=== PATIENT | female | born 1955 | race Caucasian/White ===

== ENCOUNTER 2022-12-23 00:31 | Inpatient (IN) | payer MEDICARE, BC ==
[~2022-12-23] VITALS: Ht 175.3 cm; Wt 68.5 kg
[2022-12-23] MEDS ORDERED: BUPR-53 PO (00:56)
[2022-12-23] MEDS ORDERED: METO50TA16 PO (00:56)
[2022-12-23] MEDS ORDERED: TICA90TA PO (00:56)
[2022-12-23] MEDS ORDERED: ATOR80TA PO (00:56)
[2022-12-23] MEDS ORDERED: ASPI81TA31 PO (00:56)
[2022-12-23] MEDS ORDERED: TRAZ-182 PO (00:56)
--- NOTE | 2022-12-23 01:02 | NUR ---
Called house painting instructor for 1-1 sitter. Per house painting instructor none available.
[2022-12-23 01:14] LABS: HEMATOCRIT 29.5 % (31.2-41.9); MEAN CORPUSCULAR VOLUME 96.2 fL (75.5-95.3); PLATELET COUNT (AUTO) 224 K/uL (179-408)
[2022-12-23 01:27] LABS: CARBON DIOXIDE 25 mmol/L (21-32); CHLORIDE 108 mmol/L (98-107); GLUCOSE 103 mg/dL (74-106); POTASSIUM 3.7 mmol/L (3.5-5.1); UREA NITROGEN, BLOOD 18 mg/dL (7-18)
[2022-12-23 01:35] LABS: ALANINE AMINOTRANSFERASE 22 U/L (14-59); ALKALINE PHOSPHATASE 70 U/L (50-136); ASPARTATE AMINOTRANSFERASE 19 U/L (15-37); BILIRUBIN,DIRECT 0.1 mg/dL (0.0-0.2); BILIRUBIN,TOTAL 0.3 mg/dL (0.2-1.0); ETHANOL < 3 MG/DL (0-0); TOTAL PROTEIN, SERUM 6.9 g/dL (6.4-8.2)
[2022-12-23 01:39] LABS: THYROID STIMULATING HORMONE 1.552 mIU/mL (0.358-3.740)
[2022-12-23 01:45] LABS: *BILIRUBIN,URIN NEGATIVE (NEGATIVE); *BLOOD, URINE NEGATIVE (NEGATIVE); *CLARITY,URINE CLEAR (CLEAR); *COLOR,URINE YELLOW (YELLOW); *KETONES,URINE NEGATIVE (NEGATIVE); *UROBILINOGEN,URINE 0.2 E.U./dl (NORMAL); LEUKOCYTE ESTERASE ,URINE 1+ (NEGATIVE); NITRITE, URINE NEGATIVE (NEGATIVE); UGLUCOSE NEGATIVE (NEGATIVE)
[2022-12-23 01:46] LABS: BACTERIA,URINE FEW /HPF (NONE SEEN); RBC,URINE 0-3 /HPF (0-3); SQUAMOUS EPITHELIAL CELL,UR FEW /HPF (NONE SEEN)
--- NOTE | 2022-12-23 01:48 | NUR ---
Called mental health for bed number. Recieved room # 137-B per Becky DE ANDA.
--- NOTE | 2022-12-23 01:48 | NUR ---
Patient has been medically cleared per MD Dr. Mcghee.
[2022-12-23 01:54] LABS: *AMPHETAMINE, URINE NEGATIVE (NEGATIVE); *CANNABINOID, URINE NEGATIVE (NEGATIVE); *COCCAINE, URINE NEGATIVE (NEGATIVE); *PHENCYCLIDINE SCREEN,URINE NEGATIVE (NEGATIVE)
--- NOTE | 2022-12-23 02:27 | NUR ---
Called [facility] and gave report to ADILSON Pena.
--- NOTE | 2022-12-23 02:50 | NUR ---
Transferred patient to MHU. ADILSON Pena made aware of patients arrival.
[2022-12-23] MEDS ORDERED: MAG HYDROX/AL HYDROX/SIMETH 30 ML LIQUID UDC PO PRN (03:00)
[2022-12-23] MEDS ORDERED: MAGNESIUM HYDROXIDE 30 ML LIQUID UDC PO PRN (03:00)
[2022-12-23 03:22] VITALS: BP 132/55
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
[2022-12-23] MEDS: ACETAMINOPHEN 325 MG TABLET PO PRN (04:22)
[2022-12-23] MEDS: CLONAZEPAM 0.5 MG TABLET PO PRN (04:22)
[2022-12-23 07:30] VITALS: BP 151/55
[2022-12-23 11:36] LABS: IRON, SERUM 18 ug/dL (50-175)
[2022-12-23] MEDS ORDERED: buPROPion XL 150 MG TAB.SR.24H PO SCH (13:00)
[2022-12-23] MEDS: LOPERAMIDE HCL 2 MG CAPSULE PO PRN ×2 (13:39→18:18)
[2022-12-23] MEDS: METOPROLOL TARTRATE 50 MG TABLET PO SCH ×2 (13:40→18:01)
[2022-12-23] MEDS: CEphaleXIN 250 MG CAPSULE PO SCH ×3 (13:41→21:11)
[2022-12-23] MEDS: TICAGRELOR 90 MG TABLET PO SCH ×2 (13:45→18:19)
--- NOTE | 2022-12-23 14:44 | NUR ---
SILVIA Initial Discharge Note: Pt currently resides at home alone located at [address] [place] [address] ([phone]). SILVIA contacted pt's best friend, and left a voicemail for a call back with this SW's and nursing station contact number. Pt stated she will be continuing care at [facility]. SILVIA will confirm. SILVIA will continue to work with pt, Nikki and to ensure a safe and proper discharge plan.
[2022-12-23 15:23] VITALS: BP 103/53
--- NOTE | 2022-12-23 16:33 | NUR ---
Gps/School Psychology Professor-Stayed in her room in bed most of the say, encouraged participation in her group activity. Patient tried to ambulate to the group activity, complained feeling weak no strength on her knees . Had diarrhrea x1 claimed was liquid stools large amount, Dr Giovani Delgadillo was called, informed, order received. No bowel incontinence noted,, offered to use diaper, pt. refused . Large ecchymosis /bruising to right wrist f/a area and right groin area . Complained of H/A tylenol 650 mg po offered, verbalized adequate relief .
[2022-12-23 20:03] VITALS: BP 152/59
[2022-12-23] MEDS: TEMAZEPAM 7.5 MG CAPSULE PO PRN (20:48)
[2022-12-23] MEDS: ATORVASTATIN 40 MG TABLET PO SCH (20:49)
[2022-12-24] MEDS: ACETAMINOPHEN 325 MG TABLET PO PRN ×4 (04:43→21:01)
[2022-12-24] MEDS: CEphaleXIN 250 MG CAPSULE PO SCH ×3 (06:06→21:01)
[2022-12-24 08:06] VITALS: BP 142/42
[2022-12-24] MEDS: ASPIRIN 81 MG TAB.CHEW PO SCH (09:20)
[2022-12-24] MEDS: buPROPion XL 150 MG TAB.SR.24H PO SCH (09:21)
[2022-12-24] MEDS: METOPROLOL TARTRATE 50 MG TABLET PO SCH ×2 (09:22→16:57)
[2022-12-24] MEDS: TICAGRELOR 90 MG TABLET PO SCH ×2 (09:30→16:58)
--- NOTE | 2022-12-24 13:00 | NUR ---
Gps/Flatbed Owner Operator Received a call from an Emergency #911 , stating a person named Nicci called and requesting to be transfered to a real Hospital for dehydration . Patient had been having adequate fluid intake , noted getting intrusive with her roommate situation. Discouraged from insinuating . Refused to participate in her group activity , preferred to stay in bed with hersunglasses on, wants her room dark r/t bothers her eyes.
[2022-12-24 14:20] LABS: BILIRUBIN,TOTAL 0.4 mg/dL (0.2-1.0); POTASSIUM 3.7 mmol/L (3.5-5.1); TOTAL PROTEIN, SERUM 6.5 g/dL (6.4-8.2)
[2022-12-24 15:47] VITALS: BP 121/46
--- NOTE | 2022-12-24 18:38 | NUR ---
Gps/Investment Director- Friend in to visit, brought in meds. from home , noted patient taking the same dose of medications from home, put per friend did not belt picker Brillinta r/t expensive co -payment , informed patient she's om brillinta now.
[2022-12-24 19:30] VITALS: BP 132/54
[2022-12-24] MEDS: ATORVASTATIN 40 MG TABLET PO SCH (20:26)
[2022-12-25] MEDS: CEphaleXIN 250 MG CAPSULE PO SCH ×3 (06:19→20:23)
[2022-12-25] MEDS: buPROPion XL 150 MG TAB.SR.24H PO SCH (07:50)
[2022-12-25] MEDS: TICAGRELOR 90 MG TABLET PO SCH ×2 (07:51→16:56)
[2022-12-25] MEDS: ASPIRIN 81 MG TAB.CHEW PO SCH (07:52)
[2022-12-25 07:53] VITALS: BP 145/75
[2022-12-25] MEDS: METOPROLOL TARTRATE 50 MG TABLET PO SCH ×2 (09:35→16:59)
--- NOTE | 2022-12-25 11:15 | NUR ---
GPS: Nursing noted: 5250 [facility] Request: Staff gave capy of 5250 to patient. Explained 5250 and informed patient that a certification review hearing will be held within four days and patient 's right advocate will call her to provide assistance with the hearing and to answer any of his questions. The court has been notified of this certification via [facility] portal on this day.
--- NOTE | 2022-12-25 15:26 | NUR ---
Gps/Process Safety Management Engineer- Per patient , claimed she does not belong here, she wants to be moved to another hospital . She claimed she lives with her friend , they take care of each other . She has a son that checked on her
[2022-12-25 16:29] VITALS: BP 146/59
[2022-12-25] MEDS: ACETAMINOPHEN 325 MG TABLET PO PRN (18:54)
[2022-12-25] MEDS: ATORVASTATIN 40 MG TABLET PO SCH (20:23)
[2022-12-25] MEDS: CLONAZEPAM 0.5 MG TABLET PO PRN (20:23)
[2022-12-25 20:24] VITALS: BP 131/81
[2022-12-25] MEDS: TEMAZEPAM 7.5 MG CAPSULE PO PRN (22:23)
[2022-12-26] MEDS: ACETAMINOPHEN 325 MG TABLET PO PRN ×2 (03:10→14:38)
[2022-12-26] MEDS: CLONAZEPAM 0.5 MG TABLET PO PRN ×2 (03:10→14:39)
--- NOTE | 2022-12-26 03:41 | NUR ---
Received patient at the start of the shift, requesting to talk with this blog writer. The patient had multiple complaints about the " Female Doctor that saw me today. I am going to write her up. " This patient also proceeded to make complaints about the nursing staff, other patients, the environment , just about everything and everyone. This blog writer was an active listener and made some suggestion to the patient on focusing on why she is here and to try and formulate some coping stratiges for when she is discharged, instead of making everything and everybody her problem. The patient does not recognize or talk about her SA. The patient verbalized " I am getting out of here tonight or tomorrow, no matter what". The 14 day hold was discussed, but the patient has selective listening whenever reality based or uncomfortable topics arise. This patient has shown poor insight, minimizes and or denies SI/SA , making education, encouragement and reassurance difficult and ineffective. Safety Stratiges are in place and a verbal contract for safety was made between the patient and this blog writer.
[2022-12-26] MEDS: CEphaleXIN 250 MG CAPSULE PO SCH ×3 (06:15→20:42)
[2022-12-26 07:58] VITALS: BP 123/57
[2022-12-26] MEDS: buPROPion XL 150 MG TAB.SR.24H PO SCH (08:54)
[2022-12-26] MEDS: ASPIRIN 81 MG TAB.CHEW PO SCH (08:54)
[2022-12-26] MEDS: METOPROLOL TARTRATE 50 MG TABLET PO SCH ×2 (08:55→16:41)
[2022-12-26] MEDS: TICAGRELOR 90 MG TABLET PO SCH ×2 (08:56→16:41)
--- NOTE | 2022-12-26 15:06 | NUR ---
Gps/Organ Pipe Maker Metal- Came to Nurses Station to return the portable phone, claimed she just finished talking to her son , claimed she felt like her heart is racing ,having palpitation Checked v/s HR 76 , 02 sat 98% B/P 134/60 , no pain, patient claimed feeling anxious. clonopin 0.5 mg 1 tab po given .patient was reassured,
[2022-12-26 16:13] VITALS: BP 134/60
[2022-12-26 19:52] VITALS: BP 116/63
[2022-12-26] MEDS: ATORVASTATIN 40 MG TABLET PO SCH (20:41)
[2022-12-26] MEDS: TEMAZEPAM 7.5 MG CAPSULE PO PRN (22:01)
[2022-12-27] MEDS: ACETAMINOPHEN 325 MG TABLET PO PRN ×2 (03:42→12:55)
[2022-12-27] MEDS: CEphaleXIN 250 MG CAPSULE PO SCH ×3 (05:37→22:09)
--- NOTE | 2022-12-27 06:43 | NUR ---
Patient slept 5.15 hours. Around 10 PM, this patient was sitting on the floor in the luo, requesting to call her Son. When this designer writer said it was off hours for the phone , the patient got angry and stormed off to her room. The patient easily angers and get argumentative frequently . When asked about having SI, the patient would not confirm or deny it and was quick to change the subject. Continuing to encourage the patient to verbalize her feelings and to stop minimizing the seriousness of the situation. Safety Stratiges remain in place.
[2022-12-27 07:55] VITALS: BP 132/58
[2022-12-27] MEDS: TICAGRELOR 90 MG TABLET PO SCH ×2 (08:22→16:40)
[2022-12-27] MEDS: ASPIRIN 81 MG TAB.CHEW PO SCH (08:22)
[2022-12-27] MEDS: buPROPion XL 150 MG TAB.SR.24H PO SCH (08:22)
[2022-12-27] MEDS: METOPROLOL TARTRATE 50 MG TABLET PO SCH ×2 (08:23→16:39)
[2022-12-27 15:21] VITALS: BP 130/85
--- NOTE | 2022-12-27 16:52 | NUR ---
GPS: Nursing Notes: Destructive Behavior To Self: patient is awake and responding to her name, cooperative with nursing care, compliant with her medications, needs prompting to participate in therapeutic groups, depressed mood and anxious affect, isolative and withdrawn in am, but interactive with peers, A/Ox4, unable to formulate a viable plan for self care, denies SI, continue to monitor for safety, continue with treatment plan.
[2022-12-27] MEDS: ATORVASTATIN 40 MG TABLET PO SCH (20:01)
[2022-12-27 20:03] VITALS: BP 137/48
[2022-12-27] MEDS: TEMAZEPAM 7.5 MG CAPSULE PO PRN (21:01)
--- NOTE | 2022-12-27 22:11 | NUR ---
Pt c/o insomnia, administered Restoril 7.25mg PO as ordered with good effect. Pt sleeping comfortably at this time. In no acute distress.
[2022-12-28] MEDS: CEphaleXIN 250 MG CAPSULE PO SCH (06:03)
[2022-12-28 07:59] VITALS: BP 118/54
[2022-12-28] MEDS: buPROPion XL 150 MG TAB.SR.24H PO SCH (08:57)
[2022-12-28] MEDS: ASPIRIN 81 MG TAB.CHEW PO SCH (08:57)
[2022-12-28] MEDS: METOPROLOL TARTRATE 50 MG TABLET PO SCH ×2 (08:58→16:41)
[2022-12-28] MEDS: TICAGRELOR 90 MG TABLET PO SCH ×2 (08:58→16:43)
[2022-12-28] MEDS: LOPERAMIDE HCL 2 MG CAPSULE PO PRN (09:57)
--- NOTE | 2022-12-28 10:23 | NUR ---
SILVIA Discharge Update: SILVIA spoke with pt's friend, ([phone]) who stated that pt will be discharging home under her care located at [address] [place] [address]. confirmed she will provide transportation at 11AM. Pt [facility]-up with [facility] in [place] [phone].
--- NOTE | 2022-12-28 13:00 | NUR ---
Gps Nursing Notes [facility]: Patient [facility] hearing today for 5250 upheld for GD/DTS, patient filed a Writ, request faxed to [employer].
[2022-12-28] MEDS: ACETAMINOPHEN 325 MG TABLET PO PRN (13:16)
[2022-12-28 16:00] VITALS: BP 120/45
--- NOTE | 2022-12-28 16:57 | NUR ---
GPS: Nursing Notes: Writ File: Dr. Yost informed of Writ hearing filed today. Staff left message to certified social workers in health care via answer machine regarding Writ hearing filed per Dr. Yost, continue to monitor for safety, continue with treatment plan.
[2022-12-28 20:00] VITALS: BP 114/66
[2022-12-28] MEDS: TEMAZEPAM 7.5 MG CAPSULE PO PRN (21:23)
[2022-12-28] MEDS: ATORVASTATIN 40 MG TABLET PO SCH (21:23)
[2022-12-29 07:45] VITALS: BP 105/61
[2022-12-29] MEDS: ASPIRIN 81 MG TAB.CHEW PO SCH (08:36)
[2022-12-29] MEDS: buPROPion XL 150 MG TAB.SR.24H PO SCH (08:36)
[2022-12-29] MEDS: TICAGRELOR 90 MG TABLET PO SCH ×2 (08:39→17:55)
[2022-12-29] MEDS: METOPROLOL TARTRATE 50 MG TABLET PO SCH ×2 (08:41→17:57)
[2022-12-29 08:45] VITALS: BP 115/77
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
--- NOTE | 2022-12-29 10:33 | NUR ---
SILVIA Discharge Update: SILVIA spoke with pt's friend, ([phone]) and confirmed the discharge for the pt on 12/30/22 to continue care at her home under her care located at [address] [place] [address].
[2022-12-29] MEDS: ACETAMINOPHEN 325 MG TABLET PO PRN ×2 (13:07→20:52)
[2022-12-29 15:13] VITALS: BP 129/70
--- NOTE | 2022-12-29 18:33 | NUR ---
Pt is calm on approach, A/O X3, Self care ambulatory, cooperative with care and compliant with medications. Pt interacts with staff and peers. Pt participates in group activities. Pt denies SI and verbally contracted with this internal communications writer for safety. Safety measures in place. Continue to monitor for safety, continue with treatment plan.
[2022-12-29 19:44] VITALS: BP 131/50
[2022-12-29] MEDS: ATORVASTATIN 40 MG TABLET PO SCH (20:20)
[2022-12-29] MEDS: TEMAZEPAM 7.5 MG CAPSULE PO PRN (20:52)
[2022-12-30] MEDS: ACETAMINOPHEN 325 MG TABLET PO PRN (03:45)
[2022-12-30 08:08] VITALS: BP 135/45
[2022-12-30] MEDS: ASPIRIN 81 MG TAB.CHEW PO SCH (08:13)
[2022-12-30] MEDS: buPROPion XL 150 MG TAB.SR.24H PO SCH (08:13)
[2022-12-30 08:15] VITALS: BP 135/45
[2022-12-30] MEDS: METOPROLOL TARTRATE 50 MG TABLET PO SCH (08:15)
[2022-12-30] MEDS: TICAGRELOR 90 MG TABLET PO SCH (08:15)
--- NOTE | 2022-12-30 09:20 | NUR ---
SILVIA Discharge Note: Pt will be discharged to her friend, [facility] home located at [address] [place] [address] under [facility] care on 12/30/22 at 11AM. will provide pts transportation by private vehicle at 11AM. SILVIA spoke with ([phone]) who states they are ready to accept the patient today. Pt is aware and agreeable with discharge plan. Pt is alert and oriented x4, is unable to plan for self-care at this time. However, pt is willing to accept care at by her friend, . Pt denies any suicidal or homicidal ideation. Pt will follow-up at the facility with psychiatrist, Dr. Rosenthal located at [address] [facility] [address], [place] [address] ([phone]) and Donor Center Technician, Dr. Mendez upon discharge. Pt presents with calm mood and congruent affect. PHARMACY: [facility] in [place] [phone].
--- NOTE | 2022-12-30 09:21 | NUR ---
SILVIA Discharge Screener: SILVIA completed a discharge screener with the pt.
--- NOTE | 2022-12-30 10:00 | NUR ---
Pt is calm on approach, A/O X3, Self care ambulatory, cooperative with care and compliant with medications. Pt interacts with staff and peers. Pt participates in group activities. Pt denies SI and verbally contracted with this service writer for safety. Safety measures in place. Continue to monitor for safety, continue with treatment plan.
--- NOTE | 2022-12-30 10:26 | NUR ---
Treatment Plan: Pt signed the treatment plan. SW placed it in the chart.
--- NOTE | 2022-12-30 10:42 | NUR ---
SILVIA Substance Use Intervention: SW completed a substance use intervention with the pt. Pt however refused substance use referrals offered by this SW. SW encouraged and pt continued to refuse. A copy of the intervention was placed in the patient's chart.
[2022-12-30] MEDS ORDERED: ATOR20TA PO (10:50)
--- NOTE | 2022-12-30 11:45 | NUR ---
Received order to discharge pt to her friend, [facility] home located at [address] [place] [address] under [facility] care on 12/30/22 at 11AM. will provide pts transportation by private vehicle at 11AM. SILVIA spoke with ([phone]) who states they are ready to accept the patient today. Pt is aware and agreeable with discharge plan. Pt is alert and oriented x3, is unable to plan for self-care at this time. However, pt is willing to accept care at by her friend, . Pt denies SI/HI, AH/VH, SOB and pain. presents with calm mood and congruent affect. Pt is ambulatory and able to perform her ADLs. All belongings were returned to pt. Reassurance and emotional support provided. Instructed pt to call 911 or go to the nearest hospital if feelings of wanting to hurt self or others arise. No acute distress noted
[2022-12-30] MEDS ORDERED: ATORVASTATIN 20 MG TABLET PO SCH (21:00)
[2022-12-31] MEDS ORDERED: PANTOPRAZOLE SODIUM 40 MG TABLET.DR PO SCH (07:00)
== END 2022-12-30 11:45 | disposition home or self-care (01) | DRG 885 ==
LOC: ER 00:49 → GPS 02:39
PROVIDERS: ADMIT Psychiatry & Neurology Psychiatry; ATTEND Nurse Practitioner Acute Care
DX: F33.2 Major depressive disorder, recurrent severe without psychotic features (principal); N39.0 Urinary tract infection, site not specified; B96.20 Unspecified Escherichia coli [E. coli] as the cause of diseases classified elsewhere; D50.9 Iron deficiency anemia, unspecified; F41.9 Anxiety disorder, unspecified; G47.00 Insomnia, unspecified; I25.2 Old myocardial infarction; I25.10 Atherosclerotic heart disease of native coronary artery without angina pectoris; Z98.61 Coronary angioplasty status; I10 Essential (primary) hypertension; T42.6X2D Poisoning by other antiepileptic and sedative-hypnotic drugs, intentional self-harm, subsequent encounter; T45.0X2D Poisoning by antiallergic and antiemetic drugs, intentional self-harm, subsequent encounter; Z79.899 Other long term (current) drug therapy; Z79.01 Long term (current) use of anticoagulants; Z87.891 Personal history of nicotine dependence; Z90.710 Acquired absence of both cervix and uterus; Z79.02 Long term (current) use of antithrombotics/antiplatelets; D63.8 Anemia in other chronic diseases classified elsewhere; Z20.822 Contact with and (suspected) exposure to COVID-19
CPT/HCPCS: 36415; 71045; 83550; 84443; 84484; 85025; 93005; A4663; G0480